=== PATIENT | male | born 1980 | race American Indian/Alaskan Native ===

== ENCOUNTER 2019-09-30 05:36 | Emergency (ER) | payer SELFPAY ==
[2019-09-30 06:22] LABS: Basophils # (Auto) 0.1 K/mm3 (0.0-0.1); Basophils % (Auto) 0.4 % (0.0-1.8); Eosinophils % (Auto) 0.4 % (0.0-4.3); Hematocrit 42.1 % (35.5-45.6); Hemoglobin 14.3 gm/dl (11.8-15.2); Lymphocytes # (Auto) 2.1 K/mm3 (1.2-5.4); Lymphocytes % (Auto) 15.5 % (13.4-35.0); Mean Corpuscular HGB Conc 34 % (32-34); Mean Corpuscular Volume 95 fl (84-94); Monocytes # (Auto) 1.2 K/mm3 (0.0-0.8); Monocytes % (Auto) 9.3 % (0.0-7.3); Platelet Count 195 K/mm3 (140-440); Red Blood Count 4.43 M/mm3 (3.65-5.03); Red Cell Distribution Width 14.2 % (13.2-15.2)
[2019-09-30 06:39] LABS: Alanine Aminotransferase 14 units/L (7-56); Albumin 4.4 g/dL (3.9-5); BUN/Creatinine Ratio 8; Blood Urea Nitrogen 8 mg/dL (9-20); Calcium 9.3 mg/dL (8.4-10.2); Hemolysis Index 6
[2019-09-30 07:03] LABS: Bilirubin,Urine NEG (Negative); Blood,Urine NEG (Negative); Color,Urine Yellow (Yellow); Mucus,Urine FEW /HPF; Protein,Urine <15 mg/dL mg/dL (Negative); Urobilinogen,Urine < 2.0 mg/dL (<2.0)
[2019-09-30] MEDS ORDERED: MORPHINE 4 MG/1 ML INJ IV ONE (08:41)
[2019-09-30] MEDS ORDERED: SODIUM CHLORIDE 0.9% 1000 ML 1,000 ML IV ONE (08:41)
--- NOTE | 2019-09-30 08:46 | Emergency Department Report ---
ED Abdominal Pain HPI - General Chief Complaint: Abdominal Pain Stated Complaint: ABDOMINAL PAIN Time Seen by Provider: 09/30/19 08:19 Source: patient Mode of arrival: Ambulatory Limitations: No Limitations - History of Present Illness Initial Comments: This is a 38-year-old male complaining of left lower quadrant abdominal pain 2 days. The pain is associated with chills and nausea he denies any vomiting or diarrhea. Patient states that he thought the pain was from constipation. Yesterday he drank a bottle of magnesium citrate to help with constipation. This morning he had a soft bowel movement. Prior to this morning patient's last bowel movement was 4 days ago. MD Complaint: abdominal pain -: days(s) (2) Location: LLQ, suprapubic Migration to: no migration Severity scale (0 -10): 8 Quality: sharp Consistency: intermittent Improves With: nothing Worsens With: movement Associated Symptoms: nausea, chills, constipation. denies: vomiting, diarrhea, fever, dysuria, hematemesis, hematochezia, melena, hematuria, anorexia, syncope - Related Data Previous Rx's Medication Instructions Recorded Last Taken Type Ciprofloxacin HCl [Ciprofloxacin 500 mg PO Q12HR 7 Days #14 tab 09/30/19 Unknown Rx TAB] Ketorolac [Toradol] 10 mg PO Q6H PRN #16 tablet 09/30/19 Unknown Rx metroNIDAZOLE [Flagyl] 500 mg PO Q12HR 7 Days #14 tab 09/30/19 Unknown Rx traMADoL [Ultram 50 MG tab] 50 mg PO Q6HR PRN #20 tablet 09/30/19 Unknown Rx Allergies Allergy/AdvReac Type Severity Reaction Status Date / Time Penicillins Allergy Anaphylaxis Verified 09/30/19 06:03 ED Review of Systems ROS: Stated complaint: ABDOMINAL PAIN Other details as noted in HPI Comment: All other systems reviewed and negative Constitutional: chills, malaise. denies: fever Eyes: denies: eye pain ENT: denies: ear pain, throat pain Respiratory: denies: cough, orthopnea Cardiovascular: denies: chest pain, palpitations, dyspnea on exertion Endocrine: no symptoms reported Gastrointestinal: abdominal pain, nausea, constipation. denies: vomiting, diarrhea, hematemesis, melena Genitourinary: dysuria (pressure with urination ) Skin: denies: rash Neurological: denies: headache, weakness Psychiatric: denies: depression ED Past Medical Hx - Past Medical History Previous Medical History?: Yes Hx Hypertension: Yes - Surgical History Past Surgical History?: No - Social History Smoking Status: Current Every Day Smoker Substance Use Type: None - Medications Home Medications: Home Medications Medication Instructions Recorded Confirmed Last Taken Type Ciprofloxacin HCl [Ciprofloxacin 500 mg PO Q12HR 7 Days #14 tab 09/30/19 Unknown Rx TAB] Ketorolac [Toradol] 10 mg PO Q6H PRN #16 tablet 09/30/19 Unknown Rx metroNIDAZOLE [Flagyl] 500 mg PO Q12HR 7 Days #14 tab 09/30/19 Unknown Rx traMADoL [Ultram 50 MG tab] 50 mg PO Q6HR PRN #20 tablet 09/30/19 Unknown Rx ED Physical Exam - General Limitations: No Limitations General appearance: alert, in no apparent distress - Head Head exam: Present: atraumatic - Eye Eye exam: Present: normal appearance. Absent: scleral icterus, conjunctival injection - ENT ENT exam: Present: normal exam, mucous membranes dry, other (poor dentition) - Neck Neck exam: Present: normal inspection - Respiratory Respiratory exam: Present: normal lung sounds bilaterally, respiratory distress - Cardiovascular Cardiovascular Exam: Present: tachycardia, normal heart sounds - GI/Abdominal GI/Abdominal exam: Present: soft, tenderness (LLQ and suprabupic region ), normal bowel sounds. Absent: guarding, rebound, rigid - Rectal Rectal exam: Present: normal rectal tone, tenderness, prostate tenderness. A bsent: fecal impaction, hemorrhoids, prostate enlargement - Extremities Exam Extremities exam: Present: normal inspection - Back Exam Back exam: Absent: CVA tenderness (R), CVA tenderness (L) - Neurological Exam Neurological exam: Present: alert, oriented X3 - Psychiatric Psychiatric exam: Present: normal affect - Skin Skin exam: Present: warm, dry, intact, normal color. Absent: rash ED Course Vital Signs 09/30/19 09/30/19 05:50 10:49 Temperature 99.6 F 98.2 F Pulse Rate 105 H 90 Respiratory 18 12 Rate Blood Pressure 151/84 Blood Pressure 174/78 [Right] O2 Sat by Pulse 97 97 Oximetry - Reevaluation(s) Reevaluation #1: CT scan shows a shows a low. Rectal abscess. Patient informed 09/30/19 11:[address] Jasso general surgeon will be in shortly to evaluate patient. 09/30/19 13:34 Patient was evaluated by Patient is not a surgical candidate at this time. After Toradol IV patient does report feeling better ED Medical Decision Making - Lab Data Result diagrams: 09/30/19 06:05 09/30/19 06:05 - Radiology Data Radiology results: report reviewed Critical Care Time: No Critical care attestation.: If time is entered above; I have spent that time in minutes in the direct care of this critically ill patient, excluding procedure time. ED Disposition Clinical Impression: Radha-rectal abscess Disposition: DC-01 TO HOME OR SELFCARE Is pt being admited?: No Does the pt Need Aspirin: No Condition: Stable Instructions: Anorectal Abscess and Anal Fistula (ED), Prostatitis (ED) Additional Instructions: The CAT scan done today shows a small perirectal abscess versus a prostate abscess . Warm Sitz bath at least 4 times a day for the next 3 days. Take all antibiotics as prescribed. If you develop fever worsening pain follow immediately with your primary care doctor or return to the emergency room for further evaluation. Prescriptions: Ciprofloxacin HCl [Ciprofloxacin TAB] 500 mg PO Q12HR 7 Days #14 tab metroNIDAZOLE [Flagyl] 500 mg PO Q12HR 7 Days #14 tab Ketorolac [Toradol] 10 mg PO Q6H PRN #16 tablet PRN Reason: Pain traMADoL [Ultram 50 MG tab] 50 mg PO Q6HR PRN #20 tablet PRN Reason: Pain Referrals: PRIMARY CARE, [Primary Care Provider] - 3-5 Days LAVON DESAI MD [Staff Physician] - 3-5 Days CEDRICK CENTENO MD [Staff Physician] - 3-5 Days Time of Disposition: 13:44
--- NOTE | 2019-09-30 10:02 | Cat Scan Report ---
CT abdomen pelvis w con INDICATION / CLINICAL INFORMATION: LLQ abd. pain. TECHNIQUE: All CT scans at this location are performed using CT dose reduction for ALARA by means of automated e xposure control. COMPARISON: None available. FINDINGS: Limited lower thoracic images are negative. ABDOMEN: The gallbladder, liver, spleen, pancreas, adrenal glands and kidneys are normal No enteric or retroperitoneal adenopathy. No small bowel distention. Pelvis the appendix is normal. There are scattered colonic diverticula in the descending and proximal sigmoid colon. Inflammatory changes are identified low in the pelvis. A 12 mm x 20 mm oval low-density area is seen in the perineum. This appears to be slightly posterior to the prostate and may represent a low perirectal abscess. There are no free fluid collections seen in the pelvis. No osseous abnormalities. IMPRESSION: 1. Small low-density area in the perineum suspicious for perirectal or perhaps prostatic abscess. 2. Diverticulosis. Signer Name: Eleuterio Beckett MD Signed: 09/30/2019 9:57 AM Workstation Name: [id number]
[2019-09-30 10:50] VITALS: BP 174/78
[2019-09-30] MEDS ORDERED: KETOROLAC 30 MG/1 ML INJ IV ONE (12:21)
--- NOTE | 2019-09-30 12:40 | Consultation ---
History of Present Illness Consult date: 09/30/19 Reason for consult: other (eugenia-rectal abscess) Chief complaint: pain in his bottom - History of present illness History of present illness: 38 year old male presented to ED with a history of 3 days worsening pain in his rectal area. The pain started all of a sudden 3 days ago and he thought it was due to constipation. He took some magnesium citrate and had a bowel movement with the pain still persisting. He says that he has some difficulty urinating at this time as well that he attributes to the pain. He says that the only comfortable position is on his side. He said he was nauseous last night, but today that has resolved and he denies abdominal pain. He denies any anal receptive activities and has not had this pain before. Ct scan shows a [id number] perineal abscess eugenia-rectal possibly prostatic. No visible intra-abdominal pathology except for sigmoid diverticular disease. Past History Past Medical History: No medical history Past Surgical History: No surgical history Social history: smoking Medications and Allergies Allergies Allergy/AdvReac Type Severity Reaction Status Date / Time Penicillins Allergy Anaphylaxis Verified 09/30/19 06:03 Review of Systems - Cardiovascular no chest pain - Respiratory no shortness of breath - Gastrointestinal no abdominal pain, no jaundice - Genitourinary urinary hesitancy Exam Vital Signs Temp Pulse Resp BP Pulse Ox 99.6 F 105 H 18 151/84 97 09/30/19 05:50 09/30/19 05:50 09/30/19 05:50 09/30/19 05:50 09/30/19 05:50 - General physical appearance Positive: well developed, well nourished, no distress, moderate pain - Respiratory Positive: normal expansion, normal respiratory effort - Extremities Extremities: no ischemia - Abdomen Abdomen: Present: soft, other (rectal exam - no visible abnormalities on the anus, upon digital reactal exam anus was normal tone, rectal vault was empty, there was significant pain to palpation on the posterior side of the rectum with no appreciable masses or fluctuance. ). Absent: tender, guarding, rigid Results - Labs 09/30/19 06:05 09/30/19 06:05 Abnormal lab results 09/30/19 09/30/19 Range/Units 06:05 06:05 WBC 13.5 H (4.5-11.0) K/mm3 MCV 95 H (84-94) fl [place] % (Auto) 9.3 H (0.0-7.3) % [place] # 1.2 H (0.0-0.8) K/mm3 Seg Neutrophils % 74.4 H (40.0-70.0) % Seg Neutrophils # 10.1 H (1.8-7.7) K/mm3 Sodium 136 L (137-145) mmol/L Chloride 97.1 L (98-107) mmol/L BUN 8 L (9-20) mg/dL Total Bilirubin 1.60 H (0.1-1.2) mg/dL Diabetes panel 09/30/19 Range/Units 06:05 Sodium 136 L (137-145) mmol/L Potassium 4.1 (3.6-5.0) mmol/L Chloride 97.1 L (98-107) mmol/L Carbon Dioxide 23 (22-30) mmol/L BUN 8 L (9-20) mg/dL Creatinine 1.0 (0.8-1.5) mg/dL Glucose 98 (75-100) mg/dL Calcium 9.3 (8.4-10.2) mg/dL AST 17 (5-40) units/L ALT 14 (7-56) units/L Alkaline Phosphatase 61 (35-129) units/L Total Protein 7.4 (6.3-8.2) g/dL Albumin 4.4 (3.9-5) g/dL Calcium panel 09/30/19 Range/Units 06:05 Calcium 9.3 (8.4-10.2) mg/dL Albumin 4.4 (3.9-5) g/dL Pituitary panel 09/30/19 Range/Units 06:05 Sodium 136 L (137-145) mmol/L Potassium 4.1 (3.6-5.0) mmol/L Chloride 97.1 L (98-107) mmol/L Carbon Dioxide 23 (22-30) mmol/L BUN 8 L (9-20) mg/dL Creatinine 1.0 (0.8-1.5) mg/dL Glucose 98 (75-100) mg/dL Calcium 9.3 (8.4-10.2) mg/dL Adrenal panel 09/30/19 Range/Units 06:05 Sodium 136 L (137-145) mmol/L Potassium 4.1 (3.6-5.0) mmol/L Chloride 97.1 L (98-107) mmol/L Carbon Dioxide 23 (22-30) mmol/L BUN 8 L (9-20) mg/dL Creatinine 1.0 (0.8-1.5) mg/dL Glucose 98 (75-100) mg/dL Calcium 9.3 (8.4-10.2) mg/dL Total Bilirubin 1.60 H (0.1-1.2) mg/dL AST 17 (5-40) units/L ALT 14 (7-56) units/L Alkaline Phosphatase 61 (35-129) units/L Total Protein 7.4 (6.3-8.2) g/dL Albumin 4.4 (3.9-5) g/dL - Imaging CT scan - abdomen: report reviewed, image reviewed CT scan - pelvis: report reviewed, image reviewed Assessment and Plan 38 year old male with acute small eugenia-rectal vs prostatic abscess. stable and afebrile. Current abscess is not large enough to merit surgical drainage. Would start on antibiotics and warm sitz baths q 6 hours. Toradol for inflammation and narcotic med for breakthrough if needed. It may drain spontaneously or resorb back into the body. If symptoms worsen and abscess collection grows may be a candidate for surgical incision and drainage. Would consider urology consult if symptoms don't improve as well especially if urinary hesitation persists. Isolated Hyperbilirubinemia - may be due to dehydration since there are no clinical symptoms, abnormal LFTs, or CT scan findings to correlate. Would repeat on follow up.
== END 2019-09-30 14:07 | disposition home or self-care (01) ==
LOC: ED 05:36
DX: K61.1 Rectal abscess (principal); I10 Essential (primary) hypertension; F17.200 Nicotine dependence, unspecified, uncomplicated; Z79.899 Other long term (current) drug therapy; Z88.0 Allergy status to penicillin
CPT/HCPCS: 36415; 74177; 80053; 81001; 85025; 96361; 96374; 96375; 99284; J1885; J2270; J7030; Q9967

== ENCOUNTER 2020-10-09 19:06 | Emergency (ER) | payer SELFPAY ==
--- NOTE | 2020-10-09 19:58 | Emergency Department Report ---
- General Chief Complaint: Upper Respiratory Infection Stated Complaint: COUGH/NAUSEA Time Seen by Provider: 10/09/20 19:50 Source: patient Mode of arrival: Ambulatory Limitations: No Limitations - History of Present Illness Initial Comments: Patient is a 39-year-old male presents emergency room with complaints of a cough that began a week and a half ago. he states he is unable to cough up any sputum but feels like he needs to. He has associated chest congestion, nausea, headache. He denies any chest pain, shortness of breath, fever, vomiting, diarrhea. Past medical history of hypertension. He states that he did not take his blood pressure medication today secondary to his cough but has this medication at home. He has an allergy to penicillin. He is a current every day smoker. - Related Data Previous Rx's Medication Instructions Recorded Last Taken Type Ciprofloxacin HCl [Ciprofloxacin 500 mg PO Q12HR 7 Days #14 tab 09/30/19 Unknown Rx TAB] Ketorolac [Toradol] 10 mg PO Q6H PRN #16 tablet 09/30/19 Unknown Rx metroNIDAZOLE [Flagyl] 500 mg PO Q12HR 7 Days #14 tab 09/30/19 Unknown Rx traMADoL [Ultram 50 MG tab] 50 mg PO Q6HR PRN #20 tablet 09/30/19 Unknown Rx Albuterol Sulfate [Proventil Hfa] 6.7 gm IH TID PRN #1 hfa.aer.ad 10/09/20 Unknown Rx Azithromycin [Zithromax TAB] 250 mg PO QDAY 5 Days #6 tablet 10/09/20 Unknown Rx Benzonatate [Tessalon Perles] 100 mg PO Q8HR PRN #12 capsule 10/09/20 Unknown Rx Prednisone [predniSONE 10 mg 10 mg PO .TAPER #1 tab.ds.pk 10/09/20 Unknown Rx (6-Day Pack, 21 Tabs)] guaiFENesin/DEXTROMETHORPHAN 1 each PO Q8HR PRN #12 capsule 10/09/20 Unknown Rx [Coricidin Hbp Chest John-Cough] Allergies Allergy/AdvReac Type Severity Reaction Status Date / Time Penicillins Allergy Anaphylaxis Verified 09/30/19 06:03 ED Review of Systems ROS: Stated complaint: COUGH/NAUSEA Other details as noted in HPI Comment: All other systems reviewed and negative ED Past Medical Hx - Past Medical History Previous Medical History?: Yes Hx Hypertension: Yes Additional medical history: Obesity - Surgical History Past Surgical History?: No - Social History Smoking Status: Current Every Day Smoker Substance Use Type: None - Medications Home Medications: Home Medications Medication Instructions Recorded Confirmed Last Taken Type Ciprofloxacin HCl [Ciprofloxacin 500 mg PO Q12HR 7 Days #14 tab 09/30/19 Unknown Rx TAB] Ketorolac [Toradol] 10 mg PO Q6H PRN #16 tablet 09/30/19 Unknown Rx metroNIDAZOLE [Flagyl] 500 mg PO Q12HR 7 Days #14 tab 09/30/19 Unknown Rx traMADoL [Ultram 50 MG tab] 50 mg PO Q6HR PRN #20 tablet 09/30/19 Unknown Rx Albuterol Sulfate [Proventil Hfa] 6.7 gm IH TID PRN #1 hfa.aer.ad 10/09/20 Unknown Rx Azithromycin [Zithromax TAB] 250 mg PO QDAY 5 Days #6 tablet 10/09/20 Unknown Rx Benzonatate [Tessalon Perles] 100 mg PO Q8HR PRN #12 capsule 10/09/20 Unknown Rx Prednisone [predniSONE 10 mg 10 mg PO .TAPER #1 tab.ds.pk 10/09/20 Unknown Rx (6-Day Pack, 21 Tabs)] guaiFENesin/DEXTROMETHORPHAN 1 each PO Q8HR PRN #12 capsule 10/09/20 Unknown Rx [Coricidin Hbp Chest John-Cough] ED Physical Exam - General Limitations: No Limitations General appearance: alert, in no apparent distress - Head Head exam: Present: atraumatic, normocephalic - Eye Eye exam: Present: normal appearance - ENT ENT exam: Present: mucous membranes moist - Respiratory Respiratory exam: Present: normal lung sounds bilaterally. Absent: respiratory distress, wheezes, rales, rhonchi, stridor, chest wall tenderness, accessory muscle use, decreased breath sounds, prolonged expiratory - Cardiovascular Cardiovascular Exam: Present: regular rate, normal rhythm, normal heart sounds. Absent: systolic murmur, diastolic murmur, rubs, gallop - Neurological Exam Neurological exam: Present: alert, oriented X3 - Psychiatric Psychiatric exam: Present: normal affect, normal mood - Skin Skin exam: Present: warm, dry, intact ED Course Vital Signs 10/09/20 10/09/20 19:46 20:56 Temperature 98.9 F 99.2 F Pulse Rate 105 H 95 H Respiratory 18 18 Rate Blood Pressure 182/108 Blood Pressure 194/103 [Right] O2 Sat by Pulse 98 98 Oximetry ED Medical Decision Making - Lab Data Vital Signs 10/09/20 10/09/20 19:46 20:56 Temperature 98.9 F 99.2 F Pulse Rate 105 H 95 H Respiratory 18 18 Rate Blood Pressure 182/108 Blood Pressure 194/103 [Right] O2 Sat by Pulse 98 98 Oximetry - Radiology Data Radiology results: report reviewed - Medical Decision Making Patient is a 39-year-old male presents emergency room with complaints of a cough that began a week and a half ago. he states he is unable to cough up any sputum but feels like he needs to. He has associated chest congestion, nausea, headache. He denies any chest pain, shortness of breath, fever, vomiting, diarrhea. Past medical history of hypertension. He states that he did not take his blood pressure medication today secondary to his cough but has this medication at home. He has an allergy to penicillin. He is a current every day smoker.vitals with elevated heart rate and blood pressure, heart rate improved upon repeat, blood pressure remains elevated secondary to patient not taking his blood pressure medication today, he states that he does have his medication at home. Breath sounds are clear bilaterally, no wheezing, no rales, no rhonchi, no respirations, no accessory muscle use. Chest x-ray with no significant abnormality. Given that patient is a current every day smoker and this has been ongoing for over 10 days, will treat patient with antibiotics for acute bronchitis. advised pt Please take medication as prescribed. Please stop smoking. Follow-up with a primary care doctor. Please increase your fluid intake over the next several days. May take Tylenol as needed for fever or body aches. Return to emergency room immediately for any new or worsening symptoms including but not limited to difficulty breathing, shortness of breath, severe chest pain, unable to tolerate by mouth intake, etc. Please self quarantine for 2 weeks from the onset of your symptoms. Please do not go out in public. If you are around others at home please wear a mask. If you need to cough or sneeze please do so in a napkin and immediately throw it away and immediately wash your hands. Wash your hands frequently. Wipe everything down. Recommend for you to get COVID-19 testing, may have this done at primary care doctor, health department, [facility], etc. Please take your blood pressure medication once you return home, keep a blood pressure log, follow-up with primary care doctor, eat a low-sodium diet, increase your water intake Critical care attestation.: If time is entered above; I have spent that time in minutes in the direct care of this critically ill patient, excluding procedure time. ED Disposition Clinical Impression: Tobacco abuse Acute bronchitis Qualifiers: Bronchitis organism: unspecified organism Qualified Code(s): J20.9 - Acute bronchitis, unspecified Disposition: DC-01 TO HOME OR SELFCARE Is pt being admited?: No Does the pt Need Aspirin: No Condition: Stable Instructions: Steps to Quit Smoking, Acute Bronchitis, Adult, Acute Bronchitis (ED) Additional Instructions: Please take medication as prescribed. Please stop smoking. Follow-up with a primary care doctor. Please increase your fluid intake over the next several days. May take Tylenol as needed for fever or body aches. Return to emergency room immediately for any new or worsening symptoms including but not limited to difficulty breathing, shortness of breath, severe chest pain, unable to tolerate by mouth intake, etc. Please self quarantine for 2 weeks from the onset of your symptoms. Please do not go out in public. If you are around others at home please wear a mask. If you need to cough or sneeze please do so in a napkin and immediately throw it away and immediately wash your hands. Wash your hands frequently. Wipe everything down. Recommend for you to get COVID-19 testing, may have this done at primary care doctor, health department, [facility], etc. Please take your blood pressure medication once you return home, keep a blood pressure log, follow-up with primary care doctor, eat a low-sodium diet, increase your water intake Prescriptions: guaiFENesin/DEXTROMETHORPHAN [Coricidin Hbp Chest John-Cough] 1 each PO Q8HR PRN #12 capsule PRN Reason: cough/congestion Prednisone [predniSONE 10 mg (6-Day Pack, 21 Tabs)] 10 mg PO .TAPER #1 tab.ds.pk Albuterol Sulfate [Proventil Hfa] 6.7 gm IH TID PRN #1 hfa.aer.ad PRN Reason: shortness of breath/wheezing Benzonatate [Tessalon Perles] 100 mg PO Q8HR PRN #12 capsule PRN Reason: cough Azithromycin [Zithromax TAB] 250 mg PO QDAY 5 Days #6 tablet Referrals: LAVON DESAI MD [Staff Physician] - 3-5 Days [facility] [Provider Group] - 3-5 Days Time of Disposition: 20:36 Print Language: MOHAWK
--- NOTE | 2020-10-09 20:13 | XRay Report ---
CHEST 2 VIEWS INDICATION / CLINICAL INFORMATION: cough x 1.5 weeks, chest congestion. COMPARISON: None available. FINDINGS: SUPPORT DEVICES: None. HEART / MEDIASTINUM: No significant abnormality. LUNGS / PLEURA: No significant pulmonary or pleural abnormality. No pneumothorax. ADDITIONAL FINDINGS: No significant additional findings. IMPRESSION: No significant abnormality Signer Name: Jeffry Shirley MD FACR Signed: 10/09/2020 8:08 PM Workstation Name: [id number]
[2020-10-09 21:45] VITALS: BP 194/103
== END 2020-10-09 20:56 | disposition home or self-care (01) ==
LOC: ED 19:06
DX: R05 Cough (principal); F19.10 Other psychoactive substance abuse, uncomplicated; J20.9 Acute bronchitis, unspecified; I10 Essential (primary) hypertension; F17.200 Nicotine dependence, unspecified, uncomplicated; Z79.899 Other long term (current) drug therapy; Z88.0 Allergy status to penicillin
CPT/HCPCS: 71046; 99283